=== PATIENT | female | born 2000 | race Caucasian/White ===

== ENCOUNTER 2020-01-10 06:36 | Emergency (ER) | payer OTHER ==
[~2020-01-10] VITALS: Ht 175.3 cm; Wt 87.1 kg
--- NOTE | 2020-01-10 07:30 | NUR ---
Room Service Manager assumes care- 1st contact with patient-AOX4, respiration:easy, patient is eating her own food, NAD. Patient wants some baseline blood tests, MD notified.
--- NOTE | 2020-01-10 08:11 | NUR ---
explained to the patient re: a COVID-19 swab is sufficient enough for her symptoms. And if she needs non-emergent tests, a list of clinics in the area was provided as well.
--- NOTE | 2020-01-10 08:16 | NUR ---
Patient was given written and verbal discharge instructions. Patient verbalized understanding and compliance of instructions. Patient is ambulatory with brisk steady gait. Patient refuses offer of skilled nursing placement. Patient was also given a list of available shelters in surrounding area.
== END 2020-01-10 08:19 | disposition home or self-care (01) ==
LOC: ER 06:39
DX: B34.9 Viral infection, unspecified (principal); R05 Cough; R06.02 Shortness of breath; Z20.828 Contact with and (suspected) exposure to other viral communicable diseases
CPT/HCPCS: 99283; U0003; A4663